=== PATIENT | male | born 1975 | race Caucasian/White ===

== ENCOUNTER → 2018-09-25 | Outpatient (CLI) | payer OTHER | LOC: RAD 15:46 | DX: Z09 Encounter for follow-up examination after completed treatment for conditions other than malignant neoplasm (principal); Z87.39 Personal history of other diseases of the musculoskeletal system and connective tissue; Z98.1 Arthrodesis status; Z96.7 Presence of other bone and tendon implants ==

== ENCOUNTER 2019-06-21 17:12 | Emergency (ER) | payer OTHER ==
[2019-06-21] MEDS ORDERED: ACETAMINOPHEN-O1 TAB PO (17:18)
[2019-06-21 18:12] VITALS: BP 114/64
[2019-06-22] MEDS ORDERED: DESYREL50 MG PO (14:19)
[2019-06-22] MEDS ORDERED: CEPHALEXIN500 M1 PO (15:16)
== END 2019-06-21 18:11 | disposition home or self-care (01) ==
LOC: ED 17:12
DX: M96.830 Postprocedural hemorrhage of a musculoskeletal structure following a musculoskeletal system procedure (principal); M20.41 Other hammer toe(s) (acquired), right foot; Z98.890 Other specified postprocedural states